=== PATIENT | female | born 1960 | race Caucasian/White ===

== ENCOUNTER 2020-11-30 16:21 | Emergency (ER) | payer MEDICARE, OTHER ==
[2020-11-30 18:09] LABS: BASOPHIL 0.3 % (0-2); EOSINOPHIL 0 % (0-5); HCT 35.8 % (37.0-47.0); HGB 11.8 g/dl (12.5-16.0); LYMPHOCYTE 21.1 % (15-48); MCH 27.4 pg (25.0-31.0); MCV 83.3 fL (78.0-100.0); MONOCYTE 3.3 % (0-12); MPV 11.7 fL (6.0-9.5); NRBC 0; PLT 145 K/uL (150-400); RDW 14.4 % (11.5-14.0); WBC 3.6 K/uL (4.0-10.5)
[2020-11-30 18:23] LABS: BUN/CREAT RATIO (CALC) 20.8 RATIO; CREATININE 0.77 mg/dL (0.51-0.95); POTASSIUM 3.5 mmol/L (3.5-5.1)
[2020-11-30] MEDS ORDERED: ZPAK PO (18:59)
[2020-11-30] MEDS ORDERED: MEDROL 4MG DOSEP4 MG PO (18:59)
== END 2020-11-30 19:15 | disposition home or self-care (01) ==
LOC: FER 16:21
PROVIDERS: Emergency Medicine
DX: U07.1 COVID-19 (principal)
CPT/HCPCS: 36415; 80048; 85025; 99283; U0002